=== PATIENT | male | born 1980 | race Hispanic/Latino ===

== ENCOUNTER 2021-09-11 17:05 | Emergency (ER) | payer SELFPAY ==
[~2021-09-11] VITALS: Ht 172.7 cm; Wt 83.0 kg
[2021-09-11] MEDS ORDERED: [UNRECOGNIZED DRUG - OTHER] (17:29)
[2021-09-11] MEDS ORDERED: ULTRAM50 M1 PO (19:33)
[2021-09-11] MEDS ORDERED: KEFLEX500 MG PO (19:33)
[2021-09-11 19:46] VITALS: BP 133/89
== END 2021-09-11 19:54 | disposition home or self-care (01) | DRG 156 ==
LOC: ED 17:05
DX: S02.2XXA Fracture of nasal bones, initial encounter for closed fracture (principal); S01.21XA Laceration without foreign body of nose, initial encounter; Y04.2XXA Assault by strike against or bumped into by another person, initial encounter